=== PATIENT | female | born 1970 | race Caucasian/White ===

== ENCOUNTER 2017-08-20 16:23 | Emergency (ER) | payer BC ==
[2017-08-20] MEDS ORDERED: PANTOPRAZOLE 40 MG INJ ONE (17:26)
[2017-08-20 17:59] LABS: Absolute Lymphocytes (CBC) 2.1 K/uL (0.7-4.9); Absolute Monocytes 0.5 K/uL (0.1-1.3); Absolute Neutrophil 5.2 K/uL (1.8-8.0); Basophils % 0.8 % (0-1.3); Eosinophils % 1.5 % (0-4.4); Hematocrit 37.6 % (36.0-45.0); Lymphocytes % 26.3 % (15.3-44.8); MCH 26.8 pg (27.0-35.0); MCV 80.7 fL (80-100); MPV 8.9 fL (7.6-11.3); Monocytes % 5.8 % (3.3-12.3); RBC Red Blood Cell Count 4.66 M/uL (3.86-4.86)
[2017-08-20 18:09] LABS: Potassium 3.5 mEq/L (3.6-5.0)
--- NOTE | 2017-08-20 18:14 | RAD REPORT ---
EXAM DESCRIPTION: US - Abdomen Exam Limited - 08/20/2017 5:42 pm CLINICAL HISTORY: Abdominal pain. COMPARISON: None. FINDINGS: The gallbladder wall is not thickened. A gallstone is not seen. The biliary tree is normal caliber. IMPRESSION: Unremarkable gallbladder ultrasound.
[2017-08-20 18:15] LABS: Albumin 4.1 g/dL (3.2-5.5); Bilirubin Direct 0.1 mg/dL (0-0.2); Bilirubin Total 0.7 mg/dL (0.3-1.2); Protein, Total 6.9 g/dL (6.0-8.3)
--- NOTE | 2017-08-20 19:08 | RAD REPORT ---
EXAM DESCRIPTION: CT - Stone Protocol - 08/20/2017 6:52 pm CLINICAL HISTORY: Abdominal pain. Dysuria COMPARISON: 2015 TECHNIQUE: Computed axial tomography of the abdomen pelvis was obtained without oral or IV contrast. Lack of IV and oral contrast limits evaluation of solid organs, bowel, and vessels. Coronal reformat solitario images were obtained and reviewed. All CT scans are performed using dose optimization technique as appropriate and may include automated exposure control or mA/KV adjustment according to patient size. FINDINGS: Small bilateral renal calculi are present without hydronephrosis. A ureteral calculus is n ot seen. A bladder calculus is not present. The liver, spleen, pancreas and adrenals appear grossly normal There is no evidence of diverticulitis. The appendix appears normal . 3 centimeter right ovarian cyst is present without significant free-fluid IMPRESSION: Small bilateral nonobstructing renal calculi 3 centimeter right ovarian cyst without significant free-fluid
[2017-08-20 19:12] LABS: Urine Blood TRACE (NEG); Urine Glucose NEGATIVE (NEG); Urine Protein NEGATIVE (NEG); Urine Specific Gravity 1.015 (1.005-1.030)
[2017-08-20 19:28] LABS: Urine Bacteria <20 /HPF (<20); Urine Culture Reflex Order REFLEXED
--- NOTE | 2017-08-20 20:27 | EDPHYS ---
Physician Documentation [facility] Name: Marissa Mack Age: 46 yrs Sex: Female : 1970 Arrival Date: 08/20/2017 Time: 16:24 Bed 30 Private MD: ED Physician Ray Anguiano HPI: 08/20 18:15 This 46 yrs old Female presents to ER via Ambulatory with complaints of kb Possible Kidney Stone. 18:15 The patient presents with urinary symptoms, dysuria, hematuria, hesitancy. Onset: The kb symptoms/episode began/occurred 2 day(s) ago. Modifying factors: The symptoms are alleviated by nothing, the symptoms are aggravated by urinating. Associated signs and symptoms: Pertinent positives: dysuria, hematuria, urinary frequency. Severity of symptoms: At their worst the symptoms were moderate, in the emergency department the symptoms are unchanged. The patient has not experienced similar symptoms in the past. The patient has not recently seen a physician. Pt reports urinary frequency, difficulty urinating, burning with urination and hematuria for 2 days. 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 - Social history:: Smoking status: Patient/guardian denies using tobacco. ROS: 18:14 Constitutional: Negative for fever, chills, and weight loss, Cardiovascular: Negative kb for chest pain, palpitations, and edema, Respiratory: Negative for shortness of breath, cough, wheezing, and pleuritic chest pain, MS/Extremity: Negative for injury and deformity, Skin: Negative for injury, rash, and discoloration, Neuro: Negative for headache, weakness, numbness, tingling, and seizure. 18:14 Abdomen/GI: Positive for abdominal pain, Negative for nausea, vomiting, and diarrhea, constipation, abdominal cramps, abdominal distension, anorexia. 18:14 : Positive for urinary symptoms, flank pain, hematuria, burning with urination, difficulty urinating. Exam: 18:13 Constitutional: This is a well developed, well nourished patient who is awake, alert, kb and in no acute distress. Head/Face: Normocephalic, atraumatic. Chest/axilla: Normal chest wall appearance and motion. Nontender with no deformity. No lesions are appreciated. Cardiovascular: Regular rate and rhythm with a normal S1 and S2. No gallops, murmurs, or rubs. Normal PMI, no JVD. No pulse deficits. Respiratory: Lungs have equal breath sounds bilaterally, clear to auscultation and percussion. No rales, rhonchi or wheezes noted. No increased work of breathing, no retractions or nasal flaring. Skin: Warm, dry with normal turgor. Normal color with no rashes, no lesions, and no evidence of cellulitis. MS/ Extremity: Pulses equal, no cyanosis. Neurovascular intact. Full, normal range of motion. Neuro: Awake and alert, GCS 15, oriented to person, place, time, and situation. Cranial nerves II-XII grossly intact. Motor strength 5/5 in all extremities. Sensory grossly intact. Cerebellar exam normal. Normal gait. 18:13 Abdomen/GI: Inspection: abdomen appears normal, Bowel sounds: normal, in all quadrants, Palpation: soft, in all quadrants, mild abdominal tenderness, in all quadrants, moderate abdominal tenderness, in the epigastric area and right upper quadrant. 18:13 Back: CVA tenderness, that is mild, is noted on the left. Vital Signs: 16:30 Pulse 85; Resp 16; Temp 98.7(O); Pulse Ox 99% on R/A; Weight 91.63 kg (R); Height 5 ft. aa5 0 in. (152.40 cm) (R); Pain 7/10; 16:31 BP 132 / 82; aa5 18:53 BP 129 / 81; Pulse 66; Resp 18; Pulse Ox 99% on R/A; tl3 19:10 BP 136 / 95; Pulse 70; Resp 18; Pulse Ox 100% on R/A; tl3 20:35 BP 116 / 80; Pulse 70; Resp 15; Pulse Ox 98% on R/A; kr2 16:30 Body Mass Index 39.45 (91.63 kg, 152.40 naresh) aa5 MDM: 16:32 Patient medically screened. kb 18:14 Data reviewed: vital signs, nurses notes. Data interpreted: Pulse oximetry: on room air kb is 99 %. Interpretation: normal. 20:25 Counseling: I had a detailed discussion with the patient and/or guardian regarding: the kb historical points, exam findings, and any diagnostic results supporting the discharge/admit diagnosis, lab results, radiology results, the need for outpatient follow up, a family practitioner, a security control room officer, to return to the emergency department if symptoms worsen or persist or if there are any questions or concerns that arise at home. 08/20 16:47 Order name: Amylase, Serum; Complete Time: 18:17 kb 08/20 16:47 Order name: Basic Metabolic Panel kb 08/20 16:47 Order name: CBC with Diff; Complete Time: 18:01 kb 08/20 16:47 Order name: Hepatic Function kb 08/20 16:47 Order name: Lipase; Complete Time: 18:17 kb 08/20 16:47 Order name: Urine Microscopic Only; Complete Time: 19:31 kb 08/20 16:47 Order name: US Abdomen Limited; Complete Time: 18:17 kb 08/20 16:47 Order name: Basic Metabolic Panel; Complete Time: 18:17 EDNV 08/20 16:47 Order name: Liver (Hepatic) Function; Complete Time: 18:17 EDNV 08/20 17:03 Order name: Urine Dipstick--Ancillary (enter results); Complete Time: 19:18 eb 08/20 17:03 Order name: Urine --Ancillary (enter results); Complete Time: 19:18 eb 08/20 18:18 Order name: CT Stone Protocol; Complete Time: 19:09 kb 08/20 19:30 Order name: Urine Culture EDNV 08/20 16:47 Order name: Urine Test (obtain specimen); Complete Time: 19:09 kb 08/20 16:47 Order name: IV Saline Lock; Complete Time: 20:02 kb 08/20 16:47 Order name: Labs collected and sent; Complete Time: 20:02 kb 08/20 16:47 Order name: Urine Dipstick-Ancillary (obtain specimen); Complete Time: 20:02 kb Administered Medications: 17:41 Drug: ProTONIX 40 mg Route: IVP; Infused Over: 3 mins; Site: right antecubital; tl3 19:09 Follow up: Response: No adverse reaction tl3 Disposition: 08/21 10:34 Co-signature as Attending Physician, Ray Anguiano MD. rn Disposition: 08/20/17 20:27 Discharged to Home. Impression: Calculus of kidney, Urinary tract infection, site not specified, Upper abdominal pain, unspecified. - Condition is Stable. - Discharge Instructions: Kidney Stones, [id number], Urinary Tract Infection, [id number]. - Prescriptions for Macrobid 100 mg Oral Capsule - take 1 capsule by ORAL route every 12 hours for 7 days; 14 capsule. - Medication Reconciliation Form, Thank You Letter, Antibiotic Education, Prescription Opioid Use form. - Follow up: Emergency Department; When: As needed; Reason: Worsening of condition. Follow up: Private Physician; When: 2 - 3 days; Reason: Recheck today's complaints, Continuance of care, Re-evaluation by your physician. Signatures: Dispatcher [employer] EDMS Carlita Garcia, TRIMMER AND REINFORCER-C TRIMMER AND REINFORCER-Ckb Ray Anguiano MD MD rn Calderon, Audri RN RN aa5 Mamta Recio RN RN kr2 Pati Vera, RN RN tl3 Corrections: (The following items were deleted from the chart) 08/20 20:36 20:27 08/20/2017 20:27 Discharged to Home. Impression: Calculus of kidney; Urinary kr2 tract infection, site not specified; Upper abdominal pain, unspecified. Condition is Stable. Forms are Medication Reconciliation Form, Thank You Letter, Antibiotic Education, Prescription Opioid Use. Follow up: Emergency Department; When: As needed; Reason: Worsening of condition. Follow up: Private Physician; When: 2 - 3 days; Reason: Recheck today's complaints, Continuance of care, Re-evaluation by your physician. kb
--- NOTE | 2017-08-20 20:27 | ER ---
Nurse's Notes [facility] Name: Marissa Mack Age: 46 yrs Sex: Female : 1970 Arrival Date: 08/20/2017 Time: 16:24 Bed 30 Private MD: Diagnosis: Calculus of kidney;Urinary tract infection, site not specified;Upper abdominal pain, unspecified Presentation: 08/20 16:28 Presenting complaint: Patient states: upper abd pain that began yesterday. Pt also aa5 reports burning with urination and frequency. Transition of care: patient was not received from another setting of care. Onset of symptoms was August 2017. Initial Sepsis Screen: Does the patient meet any 2 criteria? No. Patient's initial sepsis screen is negative. Does the patient have a suspected source of infection? No. Patient's initial sepsis screen is negative. Care prior to arrival: None. 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 - Social history:: Smoking status: Patient/guardian denies using tobacco. Screenin:45 Abuse screen: Denies threats or abuse. Nutritional screening: No deficits noted. tl3 Tuberculosis screening: No symptoms or risk factors identified. Fall Risk None identified. Assessment: 16:45 General: Appears in no apparent distress. uncomfortable, well groomed, well developed, tl3 well nourished, Behavior is calm, cooperative, appropriate for age. Pain: Complains of pain in abdomen. Neuro: Level of Consciousness is awake, alert, obeys commands, Oriented to person, place, time, situation, Appropriate for age. Cardiovascular: No deficits noted. Heart tones S1 S2 present Capillary refill < 3 seconds in bilateral fingers. Respiratory: Airway is patent Trachea midline Respiratory effort is even, unlabored, Respiratory pattern is regular, symmetrical. GI: Bowel sounds present X 4 quads. Abd is soft Reports upper abdominal pain. : Reports burning with urination, discharge, bloody, pain urinary frequency. : Reports pt has history of kidney stones increased frequency started yesterday, blood in urine this am, has occasional sharp upper left sided abdominal pain. EENT: No signs and/or symptoms were reported regarding the EENT system. Derm: No signs and/or symptoms reported regarding the dermatologic system. Musculoskeletal: No signs and/or symptoms reported regarding the musculoskeletal system. 18:53 Reassessment: No changes from previously documented assessment. Patient and/or family tl3 updated on plan of care and expected duration. Pain level reassessed. Patient is alert, oriented x 3, equal unlabored respirations, skin warm/dry/pink. pt provided another urine sample for lab. 19:10 Reassessment: pt to CT. tl3 20:35 Reassessment: Patient appears in no apparent distress at this time. Patient and/or kr2 family updated on plan of care and expected duration. Pain level reassessed. Patient is alert, oriented x 3, equal unlabored respirations, skin warm/dry/pink. Vital Signs: 16:30 Pulse 85; Resp 16; Temp 98.7(O); Pulse Ox 99% on R/A; Weight 91.63 kg (R); Height 5 ft. aa5 0 in. (152.40 cm) (R); Pain 7/10; 16:31 BP 132 / 82; aa5 18:53 BP 129 / 81; Pulse 66; Resp 18; Pulse Ox 99% on R/A; tl3 19:10 BP 136 / 95; Pulse 70; Resp 18; Pulse Ox 100% on R/A; tl3 20:35 BP 116 / 80; Pulse 70; Resp 15; Pulse Ox 98% on R/A; kr2 16:30 Body Mass Index 39.45 (91.63 kg, 152.40 cm) aa5 ED Course: 16:24 Patient arrived in ED. sb2 16:28 [facility]C [facility] kb 16:28 Ray Anguiano MD is Attending Physician. kb 16:29 Triage completed. aa5 16:29 Arm band placed on. aa5 16:45 Patient has correct armband on for positive identification. Bed in low position. Call tl3 light in reach. Side rails up X 1. 16:45 No provider procedures requiring assistance completed. tl3 17:06 Pati Vera, RN is Primary Nurse. tl3 17:42 US Abdomen Limited In Process Unspecified. EDMS 18:51 CT completed. Patient moved to CT via wheelchair. Patient moved back from CT. cw1 18:52 CT Stone Protocol In Process Unspecified. EDMS 20:36 IV discontinued, intact, bleeding controlled, No redness/swelling at site. Pressure kr2 dressing applied. Administered Medications: 17:41 Drug: ProTONIX 40 mg Route: IVP; Infused Over: 3 mins; Site: right antecubital; tl3 19:09 Follow up: Response: No adverse reaction tl3 Outcome: 20:27 Discharge ordered by MD. kb 20:36 Discharged to home ambulatory. kr2 20:36 Condition: good 20:36 Discharge instructions given to patient, Instructed on discharge instructions, follow up and referral plans. medication usage, Demonstrated understanding of instructions, follow-up care, medications, Prescriptions given X 1. 20:36 Patient left the ED. kr2 Addendum: 08/26/2017 08:47 Addendum: Culture Results: Positive urine culture. No further action required. Bacteria i w sensitive to prescribed antibiotic. Signatures: Dispatcher [employer] EDMS Carlita Garcia, ASSISTANT SOFTBALL COACH-C ASSISTANT SOFTBALL COACH-Ckb Ludivina Dale, RN RN iw Tona Villalpando RN RN aa5 Buffy Hudson cw1 Mamta Recio RN RN kr2 Juliana Saldivar sb2 Pati Vera, RN RN tl3 Corrections: (The following items were deleted from the chart) 08/20 19:11 19:10 Reassessment: pt to CT tl3 tl3
[2017-08-20 20:41] VITALS: TEMP 98.7
[2017-08-20 20:46] VITALS: BP 116/80; O2SAT 98
== END 2017-08-20 20:36 | disposition home or self-care (01) ==
LOC: ER 16:23
DX: N20.0 Calculus of kidney (principal); N39.0 Urinary tract infection, site not specified; R31.9 Hematuria, unspecified; Z88.5 Allergy status to narcotic agent; Z88.6 Allergy status to analgesic agent; Z87.442 Personal history of urinary calculi
CPT/HCPCS: 36415; 74176; 76377; 76705; 80048; 80076; 81003; 81015; 81025; 82150; 83690; 85025; 87077; 87086; 87088; 87186; 96374; 99284; C9113

== ENCOUNTER 2017-08-30 19:21 | Observation (INO) | payer BC ==
[2017-08-30] MEDS ORDERED: KETOROLAC 30 MG/ML INJ ONE (20:10)
[2017-08-30] MEDS ORDERED: NA CHLORIDE 0.9% 1,000 ML ONE (20:10)
--- NOTE | 2017-08-30 20:11 | RAD REPORT ---
EXAM DESCRIPTION: CT - Stone Protocol - 08/30/2017 7:56 pm CLINICAL HISTORY: Flank pain. COMPARISON: 08/20/2017 TECHNIQUE: Axial images were obtained without oral or IV contrast. Lack of contrast limits solid org an and vascular assessment. The [id number] spans the entirety of the system partially obscuring uppermost abdomen and lung bases. Coronal reformatted images were obtained and reviewed. All CT scans are performed using dose optimization technique as appropriate and may include automated exposure control or mA/KV adjustment according to patient size. FINDINGS: The lower lung shirley are clear. Imaged portions of the liver and spleen show no suspicious findings on non-contrast imaging. The panc reas and adrenal glands are normal. No pathologic lymphadenopathy in the abdomen or pelvis. 5 mm calculus (810 HU) at the right UVJ is present resulting in mild to moderate right hydronephrosis . Small stones are present in both kidneys including a 3 mm calculus in the inferior pole left kidney . No bowel obstruction, free air, free fluid or abscess. Normal appendix noted. No significant bony abnormality. IMPRESSION: 5 mm calculus (810 HU) at the right UVJ resulting in mild to moderate right hydronephros is. Additional bilateral nephrolithiasis is present.
[2017-08-30 20:31] LABS: Absolute Lymphocytes (CBC) 2.1 K/uL (0.7-4.9); Absolute Monocytes 0.6 K/uL (0.1-1.3); Absolute Neutrophil 5.9 K/uL (1.8-8.0); Basophils % 0.5 % (0-1.3); Eosinophils % 1.6 % (0-4.4); Hematocrit 39.1 % (36.0-45.0); Lymphocytes % 24.2 % (15.3-44.8); MCH 26.6 pg (27.0-35.0); MCV 81.9 fL (80-100); MPV 9.1 fL (7.6-11.3); Monocytes % 6.4 % (3.3-12.3); RBC Red Blood Cell Count 4.77 M/uL (3.86-4.86)
[2017-08-30] MEDS ORDERED: FENTANYL CITR 100 MCG/2 ML ONE ×2 (20:34→21:31)
[2017-08-30 20:39] LABS: Potassium 4.2 mEq/L (3.6-5.0)
[2017-08-30 20:45] LABS: Albumin 3.7 g/dL (3.2-5.5); Bilirubin Direct 0.1 mg/dL (0-0.2); Bilirubin Total 0.5 mg/dL (0.3-1.2); Protein, Total 6.7 g/dL (6.0-8.3)
--- NOTE | 2017-08-30 22:43 | EDPHYS ---
Physician Documentation [facility] Name: Marissa Mack Age: 46 yrs Sex: Female : 1970 Arrival Date: 08/30/2017 Time: 19:24 Bed 23 Private MD: Edward Sahni T ED Physician Yordy Solis HPI: 08/30 23:09 This 46 yrs old Female presents to ER via Wheelchair with complaints of Flank gs Pain. 23:09 The patient complains of pain in the right low back. The pain radiates to the abdomen. gs Onset: The symptoms/episode began/occurred acutely. Modifying factors: The symptoms are alleviated by nothing. the symptoms are aggravated by nothing. Associated signs and symptoms: Pertinent positives: nausea. Severity of pain: At its worst the pain was severe in the emergency department the pain is unchanged. The patient has experienced similar episodes in the past, a few times. The patient has not recently seen a physician, The patient has been recently seen at the [facility] Emergency Department, a couple of weeks ago. 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 - Social history:: Smoking status: Patient/guardian denies using tobacco. ROS: 23:09 All other systems are negative. gs Exam: 23:09 Head/Face: Normocephalic, atraumatic. Eyes: Pupils equal round and reactive to light, gs extra-ocular motions intact. Lids and lashes normal. Conjunctiva and sclera are non-icteric and not injected. Cornea within normal limits. Periorbital areas with no swelling, redness, or edema. ENT: Nares patent. No nasal discharge, no septal abnormalities noted. Tympanic membranes are normal and external auditory canals are clear. Oropharynx with no redness, swelling, or masses, exudates, or evidence of obstruction, uvula midline. Mucous membranes moist. Neck: Trachea midline, no thyromegaly or masses palpated, and no cervical lymphadenopathy. Supple, full range of motion without nuchal rigidity, or vertebral point tenderness. No Meningismus. Chest/axilla: Normal chest wall appearance and motion. Nontender with no deformity. No lesions are appreciated. Cardiovascular: Regular rate and rhythm with a normal S1 and S2. No gallops, murmurs, or rubs. Normal PMI, no JVD. No pulse deficits. Respiratory: Lungs have equal breath sounds bilaterally, clear to auscultation and percussion. No rales, rhonchi or wheezes noted. No increased work of breathing, no retractions or nasal flaring. Abdomen/GI: Soft, non-tender, with normal bowel sounds. No distension or tympany. No guarding or rebound. No evidence of tenderness throughout. Back: No spinal tenderness. No costovertebral tenderness. Full range of motion. Skin: Warm, dry with normal turgor. Normal color with no rashes, no lesions, and no evidence of cellulitis. MS/ Extremity: Pulses equal, no cyanosis. Neurovascular intact. Full, normal range of motion. Neuro: Awake and alert, GCS 15, oriented to person, place, time, and situation. Cranial nerves II-XII grossly intact. Motor strength 5/5 in all extremities. Sensory grossly intact. Cerebellar exam normal. Normal gait. 23:09 Constitutional: The patient appears alert, awake, in obvious distress, moderately distressed, uncomfortable. Vital Signs: 19:31 BP 159 / 93; Pulse 79; Resp 16; Temp 98; Pulse Ox 100% on R/A; Weight 90.72 kg (R); ak1 Height 5 ft. (152.40 cm) (R); Pain 10/10; 20:40 BP 167 / 90; Pulse 64; Resp 20; Pulse Ox 100% on R/A; mb3 23:21 BP 146 / 93; Pulse 87; Resp 18; Pulse Ox 100% on R/A; mb3 23:50 BP 157 / 85; Pulse 67; Resp 16; Pulse Ox 97% on R/A; mb3 19:31 Body Mass Index 39.06 (90.72 kg, 152.40 cm) ak1 MDM: 19:40 Patient medically screened. gs 23:09 Differential diagnosis: nephrolithiasis, pyelonephritis, UTI. Data reviewed: vital gs signs, nurses notes. Response to treatment: the patient's symptoms have mildly improved after treatment, and as a result, I will admit patient. Physician consultation: Osmany Daugherty MD and will see patient in inpatient room, would like consultation with Dr. guerra. 08/30 19:41 Order name: Basic Metabolic Panel; Complete Time: 21:39 08/30 19:41 Order name: CBC with Diff; Complete Time: 21:39 08/30 19:41 Order name: Hepatic Function; Complete Time: 21:39 08/30 19:41 Order name: Lipase; Complete Time: 21:39 08/30 19:41 Order name: Urine Microscopic Only 08/30 19:41 Order name: CT Stone Protocol; Complete Time: 20:30 08/30 19:41 Order name: Urine Test (obtain specimen) 08/30 19:41 Order name: IV Saline Lock; Complete Time: 20:31 08/30 22:51 Order name: CONS Physician Consult [facility] 08/30 22:51 Order name: NPO [facility] 08/30 19:41 Order name: Labs collected and sent; Complete Time: 20:31 08/30 19:41 Order name: Urine Dipstick-Ancillary (obtain specimen) Administered Medications: 20:22 Drug: TORadol 30 mg Route: IVP; Site: right forearm; mb3 23:19 Follow up: Response: No adverse reaction mb3 20:36 Drug: fentaNYL (PF) 50 mcg Route: IVP; Site: right forearm; mb3 23:19 Follow up: Response: No adverse reaction mb3 21:34 Drug: fentaNYL (PF) 75 mcg Route: IVP; Site: right antecubital; bb 23:19 Follow up: Response: No adverse reaction mb3 23:19 Drug: fentaNYL (PF) 75 mcg Route: IVP; Site: right forearm; mb3 Disposition: 08/30/17 22:42 Hospitalization ordered by Osmany Daugherty for Observation. Preliminary diagnosis is Calculus of kidney and ureter. - Bed requested for Telemetry/MedSurg (observation). - Status is Observation. mb3 - Condition is Stable. - Problem is new. - Symptoms have improved. UTI on Admission? No Signatures: Dispatcher [facility] Daily Thurman RN RN mw Brunilda Riggins, RN RN bb Veronica Capellan, RN RN ak1 Yordy Solis MD MD Arcenio Barrios, RN RN mb3 Corrections: (The following items were deleted from the chart) 22:51 22:42 Hospitalization Ordered by Yordy Solis MD for Observation. Preliminary mw diagnosis is Calculus of kidney and ureter. Bed requested for Telemetry/MedSurg (observation). Status is Observation. Condition is Stable. Problem is new. Symptoms have improved. UTI on Admission? No. gs 23:11 22:51 08/30/2017 22:42 Hospitalization Ordered by Yordy Solis MD for Observation. Preliminary diagnosis is Calculus of kidney and ureter. Bed requested for Telemetry/MedSurg (observation). Status is Observation. Condition is Stable. Problem is new. Symptoms have improved. UTI on Admission? No. mw 23:57 23:11 08/30/2017 22:42 Hospitalization Ordered by Osmany Daugherty MD for Observation. mb3 Preliminary diagnosis is Calculus of kidney and ureter. Bed requested for Telemetry/MedSurg (observation). Status is Observation. Condition is Stable. Problem is new. Symptoms have improved. UTI on Admission? No. gs
--- NOTE | 2017-08-30 22:43 | ER ---
Nurse's Notes [facility] Name: Marissa Mack Age: 46 yrs Sex: Female : 1970 Arrival Date: 08/30/2017 Time: 19:24 Bed 23 Private MD: Edward Sahni T Diagnosis: Calculus of kidney and ureter Presentation: 08/30 19:32 Presenting complaint: Patient states: right lower quadrant pain since this morning. 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 pt c/o nausea denies vomiting at this time. Transition of care: patient was not received from another setting of care. Onset of symptoms was August 30, 2017. Initial Sepsis Screen: Does the patient meet any 2 criteria? No. Patient's initial sepsis screen is negative. Does the patient have a suspected source of infection? No. Patient's initial sepsis screen is negative. Care prior to arrival: None. 19:32 Method Of Arrival: Wheelchair ak1 19:32 Acuity: VERA 3 ak1 Triage Assessment: 19:33 General: Appears uncomfortable, Behavior is cooperative. Pain: Complains of pain in ak1 right lower quadrant. EENT: No signs and/or symptoms were reported regarding the EENT system. Neuro: No deficits noted. Cardiovascular: No deficits noted. Respiratory: No deficits noted. GI: Reports nausea. : No signs and/or symptoms were reported regarding the genitourinary system. Derm: No signs and/or symptoms reported regarding the dermatologic system. Musculoskeletal: No signs and/or symptoms reported regarding the musculoskeletal system. 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 - Social history:: Smoking status: Patient/guardian denies using tobacco. Screenin:34 Abuse screen: Denies threats or abuse. Denies injuries from another. Nutritional ak1 screening: No deficits noted. Tuberculosis screening: No symptoms or risk factors identified. Fall Risk None identified. Assessment: 20:42 General: Appears distressed, uncomfortable, Behavior is cooperative, anxious. Pain: mb3 Complains of pain in right lower quadrant Pain does not radiate. Pain currently is 10 out of 10 on a pain scale. Neuro: No deficits noted. Cardiovascular: No deficits noted. Heart tones S1 S2 present Capillary refill < 3 seconds. Respiratory: No deficits noted. Airway is patent Respiratory effort is even, unlabored, Respiratory pattern is regular, symmetrical. GI: No signs and/or symptoms were reported involving the gastrointestinal system. : No signs and/or symptoms were reported regarding the genitourinary system. Musculoskeletal: No signs and/or symptoms reported regarding the musculoskeletal system. Capillary refill < 3 seconds, Range of motion: intact in all extremities. 21:35 Reassessment: pt states pain is not any better, notified Dr Solis, new orders received bb pt medicated see JUN. Vital Signs: 19:31 BP 159 / 93; Pulse 79; Resp 16; Temp 98; Pulse Ox 100% on R/A; Weight 90.72 kg (R); ak1 Height 5 ft. (152.40 cm) (R); Pain 10/10; 20:40 BP 167 / 90; Pulse 64; Resp 20; Pulse Ox 100% on R/A; mb3 23:21 BP 146 / 93; Pulse 87; Resp 18; Pulse Ox 100% on R/A; mb3 23:50 BP 157 / 85; Pulse 67; Resp 16; Pulse Ox 97% on R/A; mb3 19:31 Body Mass Index 39.06 (90.72 kg, 152.40 cm) ak1 ED Course: 19:24 Patient arrived in ED. es 19:24 Edward Sahni MD is Private Physician. es 19:28 Yordy Solis MD is Attending Physician. gs 19:28 Arcenio Barrios, ANDREW is Primary Nurse. mb3 19:32 Arm band placed on Patient placed in an exam room, on a stretcher, on pulse oximetry, ak1 Patient notified of wait time. 19:33 Triage completed. ak1 19:[address] via stretcher. nj 19:56 CT completed. Patient tolerated procedure well. Patient moved back from CT. nj 19:56 CT Stone Protocol In Process Unspecified. EDMS 20:41 Patient has correct armband on for positive identification. Bed in low position. Call mb3 light in reach. Side rails up X 1. Adult w/ patient. 20:42 Inserted saline lock: 20 gauge in right forearm, using aseptic technique. mb3 22:40 Yordy Solis MD is Hospitalizing Provider. gs 23:11 Hospitalizing Provider role handed off by Yordy Solis MD gs 23:11 Osmany Daugherty MD is Hospitalizing Provider. gs 23:53 No provider procedures requiring assistance completed. Patient admitted, IV remains in mb3 place. Administered Medications: 20:22 Drug: TORadol 30 mg Route: IVP; Site: right forearm; mb3 23:19 Follow up: Response: No adverse reaction mb3 20:36 Drug: fentaNYL (PF) 50 mcg Route: IVP; Site: right forearm; mb3 23:19 Follow up: Response: No adverse reaction mb3 21:34 Drug: fentaNYL (PF) 75 mcg Route: IVP; Site: right antecubital; bb 23:19 Follow up: Response: No adverse reaction mb3 23:19 Drug: fentaNYL (PF) 75 mcg Route: IVP; Site: right forearm; mb3 Outcome: 22:42 Decision to Hospitalize by Provider. gs 23:53 Admitted to Med/surg accompanied by tech, via stretcher, room 223, Report called to mb3 Jessica Montanez RN 23:53 Condition: stable 23:53 Instructed on the need for admit. 23:57 Patient left the ED. 3 Signatures: Dispatcher [employer] Funmi Browning Brenda, RN Veronica Seymour RN RN Terry Meraz Gregory, MD MD Arcenio Barrios, RN RN mb3
[2017-08-30] MEDS ORDERED: ACETAMINOPHEN 500 MG TAB PO PRN (22:49)
[2017-08-30] MEDS ORDERED: FENTANYL CITR 100 MCG/2 ML IV PRN (22:50)
--- NOTE | 2017-08-30 23:21 | P.CNS ---
Date of Consult: 08/30/17 Requesting Physician: Osmany Daugherty Chief Complaint: abdominal pain, hydronephrosis, UVJ stone History of Present Illness: Ms Mack is a 46 years old woman with history of nephrolithiasis, who start this morning with severe right lower quadrant pain. The intensity of the pain is 10/10, associated with nausea but not vomiting. No history of fever or chills. About 2 weeks ago she presented to ED, diagnosed with nephrolithiasis and UTI, sent home with Macrobid but she did not take it because was worry about side effects. She has had 2 lithotripsy in the past. Today work up in ED remarkable for normal WBC count, no fever, elevated BUN but normal creatinine. CT abd/pelvis remarkable for bilateral nephrolithiasis, with an obstructive stone on the right UVJ, with moderate hydronephrosis. Dr Daugherty admitted the patient, and he consult hospitalist service for co-management. Allergies codeine [Codeine] Allergy (Mild, Verified 12/23/11 18:30) Hives/Rash hydrocodone [Hydrocodone] Allergy (Mild, Verified 12/23/11 18:30) Hives/Rash morphine Allergy (Mild, Verified 12/23/11 18:30) Hives/Rash HYDROCODONE Allergy (Uncoded 05/15/15 07:30) Unknown Home medications list reviewed: Yes - Past Medical/Surgical History Diabetic: No -: nephrolithiasis Past Surgical History: Reviewed- Non-Contributory - Family History Father Family History: Reviewed- Non-Contributory Mother Family History: Reviewed- Non-Contributory - Social History Smoking Status: Never smoker Alcohol use: No CD- Drugs: No Place of Residence: Home Review of Systems 10-point ROS is otherwise unremarkable Physical Examination General: Alert, In no apparent distress HEENT: Atraumatic, PERRLA, Mucous membr. moist/pink, EOMI, Sclerae nonicteric Neck: Supple, 2+ carotid pulse no bruit, No LAD, Without JVD or thyroid abnormality Respiratory: Clear to auscultation bilaterally, Normal air movement Cardiovascular: Regular rate/rhythm, Normal S1 S2 Gastrointestinal: Normal bowel sounds, Tenderness (tender to palpation on the right lower quadrant.) Musculoskeletal: No tenderness Integumentary: No rashes Neurological: Normal speech, Normal tone, Normal affect Lymphatics: No axilla or inguinal lymphadenopathy Laboratory Data (last 24 hrs) 08/30/17 20:15: WBC 8.8, Hgb 12.7, Hct 39.1, Plt Count 230 08/30/17 20:15: Sodium 138, Potassium 4.2, BUN 25 H, Creatinine 0.99, Glucose 113, Total Bilirubin 0.5, AST 18, ALT 20, Alkaline Phosphatase 67, Lipase 30 Conclusions/Impression: Will continue with symptomatic medication for pain and nausea. Will possible start empiric antibiotics. Follow up Dr Daugherty.
[2017-08-31] MEDS ORDERED: NA CHLORIDE 0.9% 50 ML ONE (00:24)
[2017-08-31] MEDS ORDERED: CEFTRIAXONE 1000 MG/VIAL ONE (00:24)
[2017-08-31] MEDS: NA CHLORIDE 0.9% 1,000 ML IV SCH ×2 (00:37→08:14)
[2017-08-31] MEDS: ONDANSETRON 4 MG/2 ML VIAL IV PRN ×2 (00:37→08:17)
[2017-08-31] MEDS ORDERED: CEFTRIAXONE 1 GM/NS 50 ML 1 GM/50 ML BAG IV SCH (01:00)
[2017-08-31] MEDS: KETOROLAC 30 MG/ML INJ IV PRN ×2 (01:21→08:14)
[2017-08-31 01:32] VITALS: BMI 39.7
--- NOTE | 2017-08-31 11:36 | P.CNS ---
Date of Consult: 08/31/17 S: Patient seen and examined at bedside with RN. Case discussed with urology. Currently patient is awaiting cystoscopy with stent placement. No complaints to offer. States there her nausea is much better than before. O: PE: General: Alert, In no apparent distress HEENT: Atraumatic, PERRLA, Mucous membr. moist/pink, EOMI, Sclerae nonicteric Neck: Supple, 2+ carotid pulse no bruit, No LAD, Without JVD or thyroid abnormality Respiratory: Clear to auscultation bilaterally, Normal air movement Cardiovascular: Regular rate/rhythm, Normal S1 S2 Gastrointestinal: Normal bowel sounds, Tenderness (tender to palpation on the right lower quadrant.) Musculoskeletal: No tenderness Integumentary: No rashes Neurological: Normal speech, Normal tone, Normal affect Lymphatics: No axilla or inguinal lymphadenopathy Lab: 08/30/17 20:15: WBC 8.8, RBC 4.77, Hgb 12.7, Hct 39.1, MCV 81.9, MCH 26.6 L, MCHC 32.5, RDW 14.7, Plt Count 230, MPV 9.1, Neutrophils % 67.3, Lymphocytes % 24.2, Monocytes % 6.4, Eosinophils % 1.6, Basophils % 0.5, Absolute Neutrophils 5.9, Absolute Lymphocytes 2.1, Absolute Monocytes 0.6, Absolute Eosinophils 0.1 , Absolute Basophils 0.0 08/30/17 20:15: Sodium 138, Potassium 4.2, Chloride 108, Carbon Dioxide 21, BUN 25 H, Creatinine 0.99, Estimated GFR 60 L, Glucose 113, Calcium 8.7, Total Bilirubin 0.5, Direct Bilirubin 0.1, AST 18, ALT 20, Alkaline Phosphatase 67, Serum Total Protein 6.7, Albumin 3.7, Globulin 3.0, Albumin/Globulin Ratio 1.2, Lipase 30 A/P 1. Nephrolithasis - UVJ obstruction. NPO, IV fluids and Pain mgmt. Urology primary. Will follow along. PPX: GI and DVT Dispo: Awaiting Procedure today
[2017-08-31] MEDS ORDERED: GENTAMICIN 80 MG/100 ML BAG 80 MG/100 ML BAG IV ONE (13:19)
[2017-08-31] MEDS ORDERED: FENTANYL CITR 100 MCG/2 ML ONE (13:21)
[2017-08-31] MEDS ORDERED: MIDAZOLAM HCL 2 MG/2 ML INJ ONE (13:21)
[2017-08-31] MEDS ORDERED: PROPOFOL 200 MG/20 ML VIAL IV ONE (13:21)
[2017-08-31] MEDS ORDERED: LIDOCAINE 2% MPF 5 ML VIAL ONE (13:21)
--- NOTE | 2017-08-31 14:05 | CON ---
History Of Present Illness: This is a pleasant 46-year-old female, admitted this morning to the hosp [facility] for right flank pain. She is in severe pain, uncontrollable. She is resistant to a lot of pain medications. She was admitted with a 5 mm stone at the right UVJ and 3 mm bilateral kidney stones. Her pain has been difficult to control on the floor, therefore she needs a cystoscopy, ureteroscopy, stone extraction, and stent placement. Allergies: TO CODEINE, HYDROCODONE, MORPHINE. Home Medications: Phentermine. Past Medical History: Kidney stones. Past Surgical History: Lithotripsy, , tubal ligations. Immunizations: Adult immunizations up-to-date. Social History: Denies tobacco. Physical Examination: Vital Signs: Blood pressure 157/85, pulse 67, respirations 16, sats 97% on room air. HEENT: Atraumatic, normocephalic. Lungs: Clear bilaterally. Heart: S1, S2. Abdomen: Soft, nontender. Slight flank tenderness on the right side. Laboratory Data: Her laboratories show white count 8.8, H and H 12.7 and 39.1, platelet count 232. Chemistry; sodium 138, potassium 4.2, chloride 108, carbon dioxide 21, BUN 25, creatinine 0.99, GFR 6 0, glucose 113. Total bilirubin normal. Lipase normal. Her UA pending. CT scan results as noted a daina. Assessment: A 5 mm right ureterovesical junction stone. The patient is allergic to a lot of pain me dications, cannot take hydrocodone. Has been admitted for IV pain medications. Still having lots of pain. She has not passed the stone yet. She needs to go for cystoscopy, right retrograde pyelogram , right ureteroscopy, stone extraction, and stent placement. PB/MODL Voice ID: [id number] Report ID: [id number]
[2017-08-31 14:53] VITALS: O2SAT 96
--- NOTE | 2017-08-31 15:34 | RAD REPORT ---
EXAM DESCRIPTION: RAD - Urethrocystogrphy Retrograde - 08/31/2017 2:30 pm CLINICAL HISTORY: Retrograde urethrocystogram. FINDINGS: A single image is submitted. The examination was performed for placement of a right ureter al stent. Please refer to Dr. Daugherty's report for findings.
[2017-08-31 17:44] VITALS: BP 114/71; TEMP 97.9
[2017-08-31] MEDS ORDERED: CEFTRIAXONE/SWI 1gm 1 GM/10 ML SYR IV SCH (21:00)
== END 2017-08-31 17:48 | disposition home or self-care (01) ==
LOC: ER 19:21 → ERHOLD 22:46 → 2ND 23:39
PROVIDERS: ADMIT Urology; ATTEND Urology
PROC: 0T9680Z Drainage of Right Ureter with Drainage Device, Via Natural or Artificial Opening Endoscopic (ICD-10-PCS; 2017-08-31)
PROC: BT1DZZZ Fluoroscopy of Right Kidney, Ureter and Bladder (ICD-10-PCS; 2017-08-31)
PROC: 0WHR8YZ Insertion of Other Device into Genitourinary Tract, Via Natural or Artificial Opening Endoscopic (ICD-10-PCS; 2017-08-31)
PROC: 0TC68ZZ Extirpation of Matter from Right Ureter, Via Natural or Artificial Opening Endoscopic (ICD-10-PCS; principal; 2017-08-31 12:30)
DX: N13.2 Hydronephrosis with renal and ureteral calculous obstruction (principal)
CPT/HCPCS: 36415; 51610; 74176; 74450; 76377; 80048; 80076; 82360; 83690; 85025; 88300; 99285; G0378; J0696; J1580; J2250; J2405; J3010; J7030; Q9967

== ENCOUNTER 2017-12-27 08:23 | Day surgery (SDC) | payer BC ==
[2017-12-27 08:42] VITALS: BP 153/95; TEMP 97.6; O2SAT 100
[2017-12-27] MEDS ORDERED: GENTAMICIN 100 MG/100 ML BAG 100 MG/100 ML BAG IV ONE (08:49)
[2017-12-27] MEDS ORDERED: Ringers Lactate 1,000 ML IV ONE (08:49)
--- NOTE | 2017-12-27 09:08 | RAD REPORT ---
EXAM DESCRIPTION: RAD - Abdomen 1 View (KUB) - 12/27/2017 8:52 am CLINICAL HISTORY: surgery Pain COMPARISON: Abdomen 1 View (KUB) dated 12/26/2017; Abdomen 1 View (KUB) dated 12/05/2017; Abdomen 1 Vi ew (KUB) dated 09/05/2017; ABDOMEN 1 VIEW KUB dated 05/19/2015 FINDINGS: The bowel gas pattern is non-obstructive. No evidence of free air or pneumatosis. Small ca lcification inferior left kidney compatible left nephrolithiasis. No significant bony findings. IMPRESSION: Small stone is present inferior left kidney.
[2017-12-27] MEDS ORDERED: MIDAZOLAM HCL 2 MG/2 ML INJ ONE (09:54)
== END 2017-12-27 09:45 | disposition home or self-care (01) ==
LOC: OR 08:23
PROVIDERS: ATTEND Urology
DX: N20.0 Calculus of kidney (principal); Z53.9 Procedure and treatment not carried out, unspecified reason
CPT/HCPCS: 74018; 81025; J1580; J2250

== ENCOUNTER 2018-02-28 09:23 | Day surgery (SDC) | payer BC ==
[2018-02-28 09:47] LABS: Specific Gravity 1.025 (1.005-1.030)
[2018-02-28] MEDS ORDERED: Ringers Lactate 1,000 ML IV ONE (09:47)
[2018-02-28] MEDS ORDERED: GENTAMICIN 100 MG/100 ML BAG 100 MG/100 ML BAG IV ONE (09:47)
--- NOTE | 2018-02-28 10:02 | RAD REPORT ---
EXAM DESCRIPTION: RAD - Abdomen 1 View (KUB) - 02/28/2018 9:52 am CLINICAL HISTORY: ICD N 20.0 FINDINGS: The bowel gas pattern is unremarkable. 3 millimeter calcification within the mid to lower pole of the left kidney is unchanged from February 22, 2018
[2018-02-28] MEDS ORDERED: MIDAZOLAM HCL 2 MG/2 ML INJ ONE (11:00)
[2018-02-28] MEDS ORDERED: FENTANYL CITR 100 MCG/2 ML ONE (11:00)
[2018-02-28] MEDS ORDERED: LIDOCAINE 2% MPF 5 ML VIAL ONE (11:00)
[2018-02-28] MEDS ORDERED: PROPOFOL 200 MG/20 ML VIAL IV ONE (11:00)
[2018-02-28] MEDS ORDERED: KETOROLAC 30 MG/ML INJ ONE (12:23)
[2018-02-28 16:27] VITALS: BP 126/78; TEMP 97; O2SAT 98
== END 2018-02-28 14:00 | disposition home or self-care (01) ==
LOC: OR 09:23
PROVIDERS: ATTEND Urology
PROC: 0TF4XZZ Fragmentation in Left Kidney Pelvis, External Approach (ICD-10-PCS; principal; 2018-02-28 11:00)
DX: N20.0 Calculus of kidney (principal); E66.9 Obesity, unspecified; Z68.35 Body mass index [BMI] 35.0-35.9, adult; Z98.51 Tubal ligation status; Z88.6 Allergy status to analgesic agent; Z82.49 Family history of ischemic heart disease and other diseases of the circulatory system
CPT/HCPCS: 50590; 74018; 81025; J1580; J2250; J2704; J3010

== ENCOUNTER 2018-03-05 18:16 | Emergency (ER) | payer BC ==
[2018-03-05 19:12] LABS: Absolute Lymphocytes (CBC) 1.6 K/uL (0.7-4.9); Absolute Monocytes 0.5 K/uL (0.1-1.3); Basophils % 0.8 % (0-1.3); Eosinophils % 1.7 % (0-4.4); Hematocrit 37.3 % (36.0-45.0); Lymphocytes % 15.7 % (15.3-44.8); MCH 28.7 pg (27.0-35.0); MCV 85.7 fL (80-100); MPV 8.4 fL (7.6-11.3); Monocytes % 4.9 % (3.3-12.3); RBC Red Blood Cell Count 4.35 M/uL (3.86-4.86)
[2018-03-05 19:28] LABS: Potassium 4.4 mmol/L (3.5-5.1)
--- NOTE | 2018-03-05 19:30 | RAD REPORT ---
EXAM DESCRIPTION: CT - Stone Protocol - 03/05/2018 7:17 pm CLINICAL HISTORY: Flank pain. FLANK PAIN COMPARISON: Stone Protocol dated 08/30/2017 TECHNIQUE: Axial images were obtained without oral or IV contrast. Lack of contrast limits solid org an and vascular assessment. The [id number] spans the entirety of the system partially obscuring uppermost abdomen and lung bases. Coronal reformatted images were obtained and reviewed. All CT scans are performed using dose optimization technique as appropriate and may include automated exposure control or mA/KV adjustment according to patient size. FINDINGS: The lower lung shirley are clear. Imaged portions of the liver and spleen show no suspicious findings on non-contrast imaging. The panc reas and adrenal glands are normal. No pathologic lymphadenopathy in the abdomen or pelvis. 4 mm left UVJ stone (980 HU) is present resulting in mild left hydronephrosis. No bowel obstruction, free air, free fluid or abscess. Normal appendix noted. No significant bony abnormality. IMPRESSION: 4 mm left UVJ stone resulting in mild left hydronephrosis.
[2018-03-05] MEDS ORDERED: KETOROLAC 30 MG/ML INJ ONE (19:43)
--- NOTE | 2018-03-05 21:06 | EDPHYS ---
Physician Documentation [facility] Name: Marissa Mack Age: 47 yrs Sex: Female : 1970 Arrival Date: 03/05/2018 Time: 18:21 Bed 15 Private MD: Edward Sahni T ED Physician Yordy Solis HPI: 03/05 20:46 This 47 yrs old Female presents to ER via Ambulatory with complaints of snw KIDNEY PAIN. 20:47 This 47 yrs old Female presents to ER via Ambulatory with complaints of snw KIDNEY PAIN. 20:47 The patient presents with flank pain, on the left, urinary symptoms. Onset: The snw symptoms/episode began/occurred suddenly, 3 day(s) ago, and became worse today. Associated signs and symptoms: Pertinent positives: cramping. Severity of symptoms: At their worst the symptoms were moderate, severe. The patient has experienced similar episodes in the past. lithotripsy last week. Historical: - Allergies: 18:26 Codeine; la1 18:26 HYDROCODONE; la1 18:26 Morphine; la1 - PMHx: 18:26 Kidney stones; la1 - PSHx: 18:26 ; Tubal ligation; lithotipsy; la1 - Immunization history:: Adult Immunizations up to date. - Social history:: Smoking status: Patient/guardian denies using tobacco. - Ebola Screening: : No symptoms or risks identified at this time. ROS: 20:46 Constitutional: Negative for fever, chills, and weight loss, Eyes: Negative for injury, snw pain, redness, and discharge, ENT: Negative for injury, pain, and discharge, Neck: Negative for injury, pain, and swelling, Cardiovascular: Negative for chest pain, palpitations, and edema, Respiratory: Negative for shortness of breath, cough, wheezing, and pleuritic chest pain, : Negative for injury, bleeding, discharge, and swelling, MS/Extremity: Negative for injury and deformity, Skin: Negative for injury, rash, and discoloration, Neuro: Negative for headache, weakness, numbness, tingling, and seizure. 20:46 Abdomen/GI: Positive for abdominal pain. 20:46 Back: Positive for flank pain, radiated pain, of the left mid back. Exam: 20:44 Constitutional: This is a well developed, well nourished patient who is awake, alert, snw and in no acute distress. Head/Face: Normocephalic, atraumatic. Eyes: Pupils equal round and reactive to light, extra-ocular motions intact. Lids and lashes normal. Conjunctiva and sclera are non-icteric and not injected. Cornea within normal limits. Periorbital areas with no swelling, redness, or edema. ENT: Nares patent. No nasal discharge, no septal abnormalities noted. Tympanic membranes are normal and external auditory canals are clear. Oropharynx with no redness, swelling, or masses, exudates, or evidence of obstruction, uvula midline. Mucous membranes moist. Neck: Trachea midline, no thyromegaly or masses palpated, and no cervical lymphadenopathy. Supple, full range of motion without nuchal rigidity, or vertebral point tenderness. No Meningismus. Chest/axilla: Normal chest wall appearance and motion. Nontender with no deformity. No lesions are appreciated. Cardiovascular: Regular rate and rhythm with a normal S1 and S2. No gallops, murmurs, or rubs. Normal PMI, no JVD. No pulse deficits. Respiratory: Lungs have equal breath sounds bilaterally, clear to auscultation and percussion. No rales, rhonchi or wheezes noted. No increased work of breathing, no retractions or nasal flaring. Skin: Warm, dry with normal turgor. Normal color with no rashes, no lesions, and no evidence of cellulitis. MS/ Extremity: Pulses equal, no cyanosis. Neurovascular intact. Full, normal range of motion. Neuro: Awake and alert, GCS 15, oriented to person, place, time, and situation. Cranial nerves II-XII grossly intact. Motor strength 5/5 in all extremities. Sensory grossly intact. Cerebellar exam normal. Normal gait. 20:44 Abdomen/GI: Inspection: abdomen appears normal, Bowel sounds: normal, Palpation: abdomen is soft and non-tender, in all quadrants. 20:44 Back: pain, that is moderate, ROM is normal, normal spinal alignment noted, CVA tenderness, that is mild, that is moderate, is noted on the left, burning from Left CVA down left lower abd to bladder. Vital Signs: 18:26 BP 159 / 89; Pulse 84; Resp 15; Temp 97.3; Pulse Ox 98% on R/A; Weight 85.28 kg; Height la1 5 ft. 1 in. (154.94 cm); 19:30 BP 164 / 81; Pulse 77; Resp 16; Pulse Ox 100% on R/A; jb4 20:54 BP 138 / 84; Pulse 76; Resp 16; Pulse Ox 100% on R/A; jb4 21:35 BP 137 / 84; Pulse 81; Resp 18; Pulse Ox 100% on R/A; jb4 22:00 BP 155 / 88; Pulse 76; Resp 16; Pulse Ox 100% on R/A; jb4 18:26 Body Mass Index 35.52 (85.28 kg, 154.94 cm) la1 MDM: 18:40 Patient medically screened. snw 21:07 Data reviewed: vital signs, nurses notes. Data interpreted: Pulse oximetry: on room air snw is 100 %. Interpretation: normal. Counseling: I had a detailed discussion with the patient and/or guardian regarding: the historical points, exam findings, and any diagnostic results supporting the discharge/admit diagnosis, lab results, radiology results, the need for outpatient follow up, to return to the emergency department if symptoms worsen or persist or if there are any questions or concerns that arise at home. Special discussion: I have referred the patient to see his PCP for further evaluation of high blood pressure. Based on the history and exam findings, there is no indication for further emergent testing or inpatient evaluation. I discussed with the patient/guardian the need to see the primary care provider for further evaluation of the symptoms. I discussed with the patient/guardian the need to see the urologist for further evaluation of the symptoms. 03/05 18:43 Order name: Urine Culture [facility] 03/05 18:43 Order name: Urine Microscopic Only [facility] 03/05 18:44 Order name: Urine Culture EDMS 03/05 19:02 Order name: CBC with Diff; Complete Time: 19:16 snw 03/05 19:02 Order name: Chem 7; Complete Time: 19:33 snw 03/05 21:10 Order name: Urine Dipstick--Ancillary (enter results); Complete Time: 21:17 mw2 03/05 18:43 Order name: Urine Dipstick-Ancillary (obtain specimen); Complete Time: 21:07 snw 03/05 18:43 Order name: CT Stone Protocol; Complete Time: 19:33 snw Administered Medications: 19:45 Drug: TORadol 60 mg Route: IM; Site: right deltoid; jb4 20:55 Follow up: Response: No adverse reaction; Pain is decreased jb4 21:55 Drug: fentaNYL (PF) 50 mcg Route: IM; Site: right deltoid; jb4 22:06 Follow up: Response: No adverse reaction; Pain is decreased jb4 Disposition: 03/06 11:16 Co-signature as Attending Physician, Yordy Solis MD. Disposition: 03/05/18 21:05 Discharged to Home. Impression: Hydronephrosis with renal and ureteral calculous obstruction. - Condition is Stable. - Discharge Instructions: Kidney Stones, Hydronephrosis, Dietary Guidelines to Help Prevent Kidney Stones. - Prescriptions for Zofran 4 mg Oral Tablet - take 1 tablet by ORAL route every 12 hours As needed; 20 tablet. Flomax 0.4 mg Oral Capsule, Sust. Release 24 hr - take 1 capsule by ORAL route once daily 1/2 hour following the same meal each day; 30 capsule. Diclofenac Sodium 75 mg Oral Tablet Sustained Release - take 1 tablet by ORAL route 2 times per day; 30 tablet. - Medication Reconciliation Form, Thank You Letter, Antibiotic Education, Prescription Opioid Use form. - Follow up: Edward Sahni MD; When: 2 - 3 days; Reason: Recheck today's complaints, Continuance of care, Re-evaluation by your physician. Follow up: Emergency Department; When: As needed; Reason: Worsening of condition. Signatures: Dispatcher [employer] EDMS Kathleen Mckeon, GERA-C CURRENCY EXAMINER-Csnw Estevan Campbell RN RN la1 Mike Agarwal RN RN jb4 Yordy Solis MD MD Corrections: (The following items were deleted from the chart) 03/05 22:07 21:05 03/05/2018 21:05 Discharged to Home. Impression: Hydronephrosis with renal and jb4 ureteral calculous obstruction. Condition is Stable. Forms are Medication Reconciliation Form, Thank You Letter, Antibiotic Education, Prescription Opioid Use. Follow up: Edward Sahni; When: 2 - 3 days; Reason: Recheck today's complaints, Continuance of care, Re-evaluation by your physician. Follow up: Emergency Department; When: As needed; Reason: Worsening of condition. snw
--- NOTE | 2018-03-05 21:06 | ER ---
Nurse's Notes [facility] Name: Marissa Mack Age: 47 yrs Sex: Female : 1970 Arrival Date: 03/05/2018 Time: 18:21 Bed 15 Private MD: Edward Sahni T Diagnosis: Hydronephrosis with renal and ureteral calculous obstruction Presentation: 03/05 18:25 Presenting complaint: Patient states: I had a lithotripsy on Tuesday and today I began la1 having severe left sided pain again. Transition of care: patient was not received from another setting of care. Onset of symptoms was March 05, 2018. Risk Assessment: Do you want to hurt yourself or someone else? Patient reports no desire to harm self or others. Initial Sepsis Screen: Does the patient meet any 2 criteria? No. Patient's initial sepsis screen is negative. Does the patient have a suspected source of infection? No. Patient's initial sepsis screen is negative. Care prior to arrival: None. 18:25 Method Of Arrival: Ambulatory la1 18:25 Acuity: VERA 3 la1 Historical: - Allergies: 18:26 Codeine; la1 18:26 HYDROCODONE; la1 18:26 Morphine; la1 - PMHx: 18:26 Kidney stones; la1 - PSHx: 18:26 ; Tubal ligation; lithotipsy; la1 - Immunization history:: Adult Immunizations up to date. - Social history:: Smoking status: Patient/guardian denies using tobacco. - Ebola Screening: : No symptoms or risks identified at this time. Screenin:30 Abuse screen: Denies threats or abuse. Nutritional screening: No deficits noted. fc Tuberculosis screening: No symptoms or risk factors identified. Fall Risk None identified. Assessment: 19:30 General: Appears in no apparent distress. uncomfortable, Behavior is calm, cooperative, jb4 appropriate for age. Pain: Complains of pain in left low back Pain radiates to left lower quadrant Pain currently is 10 out of 10 on a pain scale. at worst was 10 out of 10 on a pain scale. Quality of pain is described as burning, sharp. Neuro: Level of Consciousness is awake, alert, obeys commands, Oriented to person, place, time, situation. Cardiovascular: Patient's skin is warm and dry. Respiratory: Airway is patent Respiratory effort is even, unlabored, Respiratory pattern is regular, symmetrical. GI: Reports nausea. : No signs and/or symptoms were reported regarding the genitourinary system. EENT: No signs and/or symptoms were reported regarding the EENT system. Derm: Skin is intact, Skin is pink, warm \T\ dry. Musculoskeletal: Circulation, motion, and sensation intact. 20:54 Reassessment: Patient appears in no apparent distress at this time. Patient and/or jb4 family updated on plan of care and expected duration. Pain level reassessed. Patient is alert, oriented x 3, equal unlabored respirations, skin warm/dry/pink. 21:50 Reassessment: Patient appears in no apparent distress at this time. Patient and/or jb4 family updated on plan of care and expected duration. Pain level reassessed. Patient is alert, oriented x 3, equal unlabored respirations, skin warm/dry/pink. fentanyl given. will recheck vitals in 10 mins before discharge. Vital Signs: 18:26 BP 159 / 89; Pulse 84; Resp 15; Temp 97.3; Pulse Ox 98% on R/A; Weight 85.28 kg; Height la1 5 ft. 1 in. (154.94 cm); 19:30 BP 164 / 81; Pulse 77; Resp 16; Pulse Ox 100% on R/A; jb4 20:54 BP 138 / 84; Pulse 76; Resp 16; Pulse Ox 100% on R/A; jb4 21:35 BP 137 / 84; Pulse 81; Resp 18; Pulse Ox 100% on R/A; jb4 22:00 BP 155 / 88; Pulse 76; Resp 16; Pulse Ox 100% on R/A; jb4 18:26 Body Mass Index 35.52 (85.28 kg, 154.94 cm) la1 ED Course: 18:21 Patient arrived in ED. sb2 18:22 Edward Sahni MD is Private Physician. sb2 18:26 Triage completed. la1 18:27 Arm band placed on left wrist. la1 18:34 [facility]C [facility] snw 18:34 Yordy Solis MD is Attending Physician. snw 18:58 Inserted saline lock: 20 gauge in right antecubital area, using aseptic technique. dh3 19:07 Initial lab(s) drawn, by me, sent to lab. [facility] 19:17 CT Stone Protocol In Process Unspecified. EDMS 19:33 Mike Agarwal, RN is Primary Nurse. jb4 20:00 Patient has correct armband on for positive identification. Placed in gown. Bed in low fc position. Call light in reach. 21:05 Edward Sahni MD is Referral Physician. snw 21:39 No provider procedures requiring assistance completed. IV discontinued, intact, fc bleeding controlled, No redness/swelling at site. Pressure dressing applied. Administered Medications: 19:45 Drug: TORadol 60 mg Route: IM; Site: right deltoid; jb4 20:55 Follow up: Response: No adverse reaction; Pain is decreased jb4 21:55 Drug: fentaNYL (PF) 50 mcg Route: IM; Site: right deltoid; jb4 22:06 Follow up: Response: No adverse reaction; Pain is decreased 4 Outcome: 21:05 Discharge ordered by MD. snw 22:00 Discharged to home ambulatory, with family. jb4 22:00 Condition: stable 22:00 Discharge instructions given to patient, family, Instructed on discharge instructions, follow up and referral plans. medication usage, Demonstrated understanding of instructions, follow-up care, medications, Prescriptions given X 3. 22:07 Patient left the ED. jb4 Signatures: Dispatcher [employer] EDMS Kathleen Mckeon, PARLIAMENTARY ARCHIVIST-C PARLIAMENTARY ARCHIVIST-Csnw Millie White RN RN fc Attema, Lee, RN RN la1 Mike Agarwal, RN RN jb4 Marilee Salinas [facility] Juliana Saldivar [facility]
[2018-03-05 21:15] LABS: Urine Blood 2+ (NEG); Urine Glucose 1+ (NEG); Urine Protein NEGATIVE (NEG); Urine Specific Gravity 1.025 (1.005-1.030)
[2018-03-05] MEDS ORDERED: FENTANYL CITR 100 MCG/2 ML ONE (21:59)
[2018-03-05 22:14] LABS: Urine Amorphous Sediment 2+ /HPF (NONE SEEN); Urine Bacteria 20-50 /HPF (<20); Urine Culture Reflex Order NOT NEEDED; Urine RBC 20-50 /HPF (NONE SEEN)
[2018-03-05 22:21] VITALS: TEMP 97.3
[2018-03-05 22:22] VITALS: O2SAT 100
[2018-03-05 22:26] VITALS: BP 155/88
== END 2018-03-05 22:07 | disposition home or self-care (01) ==
LOC: ER 18:16
DX: N13.2 Hydronephrosis with renal and ureteral calculous obstruction (principal); Z88.5 Allergy status to narcotic agent
CPT/HCPCS: 36415; 74176; 76377; 80048; 81003; 81015; 85025; 87086; 87088; 96372; 99284; J3010